=== PATIENT | male | born 1945 | race Caucasian/White ===

== ENCOUNTER 2016-09-21 04:39 | Day surgery (SDC) | payer OTHER ==
[2016-09-18 14:25] LABS: BASOPHILS 0.7 %; BASOPHILS ABSOLUTE 0.05 10/3/uL (0.0-0.16); EOSINOPHILS 3.3 %; EOSINOPHILS ABSOLUTE 0.23 10/3/uL (0.0-0.53); HEMATOCRIT 41.2 % (40.0-51.0); HEMOGLOBIN 13.6 g/dL (13.6-17.8); IMMATURE GRANULOCYTES 0.1 %; IMMATURE GRANULOCYTES ABSOLUTE 0.01 10/3/uL (0.0-0.11); LYMPHOCYTES 27.4 %; LYMPHOCYTES ABSOLUTE 1.93 10/3/uL (0.67-4.30); MEAN CORPUSCULAR HEMOGLOB 30.8 pg (26.0-34.0); MEAN CORPUSCULAR VOLUME 93.2 fL (80-100); MEAN PLATELET VOLUME 10.3 fL (9.2-13.0); MONOCYTES 8.2 %; MONOCYTES ABSOLUTE 0.58 10/3/uL (0.21-1.20); NEUTROPHILS 60.3 %; NEUTROPHILS ABSOLUTE 4.25 10/3/uL (2.02-8.40); PLATELET COUNT 251 10/3/uL (150-400); RBC DISTRIBUTION WIDTH 13.9 % (12.0-16.0); RED CELL COUNT 4.42 10/6/uL (4.7-6.1); WHITE BLOOD CELLS 7.1 10/3/uL (4.5-10.5)
[2016-09-18 14:27] LABS: MANUAL DIFF NO %
[2016-09-18 14:40] LABS: A/G RATIO 1.3 (0.7-1.9); ALBUMIN 4.6 G/DL (3.5-5.0); ALKALINE PHOSPHATASE 100 U/L (45-117); BUN (BLOOD UREA NITROGEN) 12 MG/DL (6-23); CALCIUM, SERUM 9.4 MG/DL (8.5-10.4); CHLORIDE, SERUM 108 MMOL/L (96-112); CO2 (CARBON DIOXIDE) 27 MMOL/L (24-34); CREATININE 0.94 MG/DL (0.70-1.30); GFR AFRICAN AMERICAN 95 ML/MIN (>=60); GFR NON AFRICAN AMERICAN 82 ML/MIN (>=60); GLOBULIN 3.5 G/DL (2.5-4.1); GLUCOSE, SERUM 101 MG/DL (60-99); POTASSIUM, SERUM 3.6 MMOL/L (3.5-5.3); SGOT(AST) 19 U/L (5-40); SGPT(ALT) 27 U/L (5-65); SODIUM, SERUM 142 MMOL/L (135-148); TOTAL BILIRUBIN 0.6 MG/DL (0-1.2); TOTAL PROTEIN 8.1 G/DL (6.0-8.5)
--- NOTE | ~2016-09-21 | OP ---
Record Of Operation [facility] [address] [place]. [address] NAME: JULIETA PINK : 49 STATUS : [facility]#: [id number] AGE: 71 ADM/REG DATE : 09/21/16 MR#: [id number] REPORT SERV DATE: 09/22/16 DICTATED BY: SELWYN MIRELES DATE: 09/22/16 REPORT STATUS : Draft TRANSCRIBED BY: MODL DATE: 09/22/16 DATE OF PROCEDURE: 09/21/2016 PREOPERATIVE DIAGNOSIS: Biliary dyskinesia. POSTOPERATIVE DIAGNOSES: Biliary dyskinesia and chronic cholecystitis. PROCEDURE PERFORMED: Laparoscopic cholecystectomy. ANESTHESIA: General. ESTIMATED BLOOD LOSS: Minimal. SPECIMEN REMOVED: Gallbladder. BRIEF HISTORY: Mr. Pink is a 71-year-old gentleman, who presents with recurrent bouts of epigastric and right upper quadrant abdominal pain. Outpatient imaging confirmed presence of biliary disease. He presents today for cholecystectomy. FINDINGS AT TIME OF PROCEDURE: Mr. Pink's gallbladder was distended and had some minimal chronic inflammation. Limited examination of remainder of the liver, stomach, small and large bowel revealed no other obvious abnormalities. DESCRIPTION OF PROCEDURE: Following informed consent, the patient was taken to the operating room and placed supine on the OR table. After successful induction of general endotracheal anesthesia, his abdomen was prepped and draped in usual sterile fashion. An umbilical skin incision was made and skin hooks were used to elevate the skin edges and anterior rectus fascia. There was a small umbilical hernia defect, and we were able to use this as a portal of entry into the abdominal cavity. A non-bladed 5 mm trocar was then inserted through this orifice and connected to insufflation tubing, and the peritoneal cavity was insufflated with carbon dioxide to a resting pressure of 15 mmHg. A 5 mm laparoscope was then introduced. The underlying bowel and vascular structures were carefully inspected and noted to be free from injury from initial trocar insertion. Three additional trocars were placed under direct visualization, a 10 mm subxiphoid epigastric trocar followed by two 5 mm trocars placed in the right upper quadrant. The gallbladder was grasped at its fundus and retracted in lateral and cephalad direction toward the patient's right shoulder blade. The infundibulum of the gallbladder was grasped and retracted inferiorly and laterally toward the patient's right anterior superior iliac spine. Cystic duct and cystic artery were dissected free from the underlying fatty peritoneal structures and once a critical view of safety was obtained and both these structures were seen to clearly transverse into the infundibulum of the gallbladder, they were both triply clipped and ligated, and divided with scissors. The gallbladder was then dissected free from the gallbladder fossa using blunt dissection and cautery. It was placed inside an endoscopic retrieval pouch and removed from the 10 mm trocar site, intact, and without incident. Gallbladder fossa was copiously irrigated. Hemostasis was secured with cautery and there was no evidence of bile leakage from the gallbladder fossa or cystic duct stump. The two 5 mm trocars were removed followed Record Of Operation [facility] [id number] [place]. [address] NAME: JULIETA PINK : 49 STATUS : [facility] PAT#: [id number] AGE: 71 ADM/REG DATE : 09/21/16 MR#: [id number] REPORT SERV DATE: 09/22/16 DICTATED BY: SELWYN MIRELES DATE: 09/22/16 REPORT STATUS : Draft TRANSCRIBED BY: YENNI DATE: 09/22/16 by the 10 mm subxiphoid trocar. The sites were observed. Hemostasis was found to be secured. The peritoneal cavity was desufflated. Laparoscope was removed. Fascia at the 10 mm umbilical trocars were approximated using 0 Vicryl suture. Skin edges of all four incisions were approximated using 4-0 Monocryl subcuticular suture and Dermabond. At the completion of the case, all sponge and needle counts were correct. The patient was extubated and transferred to recovery room in satisfactory condition, having suffered no apparent perioperative complications. LIZABETH/YENNI Selwyn Mireles M.D. / [id number] CC: Aubrey Andrade M.D.
[~2016-09-21 04:39] MED LIST: ANOROELLIPTA INH; ASAB PO; COZ25 PO; KLOR-CON 1010 MEQ PO; L20 PO; LEVOTHYROXIN25 MCG PO; MOBIC15 MG PO; NORCO1 TA1 PO; NORV10 PO; PROAIR HFA INH; SEREVDISC INH; THEO24300 PO; ZOCOR20 PO
== END 2016-09-21 11:11 | disposition home or self-care (01) ==
LOC: SDC 04:39
PROVIDERS: Surgery
PROC: 0FT44ZZ Resection of Gallbladder, Percutaneous Endoscopic Approach (ICD-10-PCS; principal; 2016-09-21 05:45)
DX: K81.1 Chronic cholecystitis (principal); I10 Essential (primary) hypertension; J44.9 Chronic obstructive pulmonary disease, unspecified; G47.33 Obstructive sleep apnea (adult) (pediatric); E78.00 Pure hypercholesterolemia, unspecified; M19.90 Unspecified osteoarthritis, unspecified site; J45.909 Unspecified asthma, uncomplicated; F17.210 Nicotine dependence, cigarettes, uncomplicated; Z79.82 Long term (current) use of aspirin; Z79.899 Other long term (current) drug therapy; Z88.0 Allergy status to penicillin; Z98.890 Other specified postprocedural states
CPT/HCPCS: 80053; 85025; 88304; 93005; 94640; J0690; J1170; J2250; J2405; J2710; J3010